=== PATIENT | male | born 1975 | race Caucasian/White ===

== ENCOUNTER 2020-10-13 13:59 | Outpatient (CLI) | payer OTHER ==
[2020-10-13 14:41] LABS: Hemoglobin 14.9 g/dL (13.5-17.5); Mean Corpuscular HGB CONC 34.2 g/dL (32.0-36.0); Mean Corpuscular Hemoglobin 29.4 pg (27.0-33.0); Mean Platelet Volume 9.3 fl (7.4-10.4); Platelet Count 220 10x3/uL (150-450); Red Blood Cell (RBC) Count 5.07 10x6/uL (4.32-5.72); White Blood Cell (WBC) Count 6.2 10x3/uL (3.5-10.5)
[2020-10-14 16:05] LABS: SARS-CoV-2 PCR by NAA Not Detected (NotDetected)
== END 2020-10-13 14:00 | disposition home or self-care (01) ==
LOC: LABBT 13:59
PROVIDERS: ATTEND Orthopaedic Surgery Hand Surgery
DX: Z01.812 Encounter for preprocedural laboratory examination (principal); S63.202A Unspecified subluxation of right middle finger, initial encounter; Z20.822 Contact with and (suspected) exposure to COVID-19
CPT/HCPCS: 85027; U0003; U0005